=== PATIENT | female | born 1970 | race Caucasian/White ===

== ENCOUNTER → 2017-09-23 | Outpatient (CLI) | payer MEDICARE, OTHER ==
[~2017-09-23] MED LIST: ALPR.5 PO; ANAS1TAB PO; ATEN50TA PO; CITA40TA4 PO; HYDR25TA5 PO; LEVO50TA4 PO; LISI-515 PO; NORC5TAB PO; SOMA350T PO
[2017-09-23 12:21] LABS: HEMATOCRIT 34.4 % (35.0-46.0); MEAN CELL VOLUME 75.9 FL (80.0-100.0); MEAN CORPUSCULAR HEMOGLOBIN 24.2 PG (27.0-34.0); MEAN CORPUSCULAR HGB CONC 31.9 % (32.0-36.0); MEAN PLATELET VOLUME 7.7 FL (7.0-11.0); PLATELET COUNT 366 TH/MM3 (150-450); RED BLOOD COUNT 4.53 MIL/MM3 (4.00-5.30); RED CELL DISTRIBUTION WIDTH 19.9 % (11.6-17.2); WHITE BLOOD COUNT 6.7 TH/MM3 (4.0-11.0)
--- NOTE | 2017-09-23 14:09 | RADRPT ---
EXAM DATE/TIME: 09/23/2017 13:41 [place] COMPARISON: No previous studies available for comparison. INDICATIONS : Evaluate for pnemonia,pnuemothorax, or other communicable disease. Pre-op D&C. MEDICAL HISTORY : Carcinoma, breast. SURGICAL HISTORY : Lobectomy. [place] ENCOUNTER: Initial ACUITY: 1 day PAIN SCORE: 0/10 LOCATION: Bilateral chest FINDINGS: PA and lateral views of the chest demonstrate the lungs to be symmetrically aerated without evidence of mass, infiltrate or effusion. [id number] in good position. The cardiomediastinal contours are unremarkable. Osseous structures are intact. CONCLUSION: Negative for an acute process. Isaac Medley MD FACR on September 23, 2017 at 14:06 Board Certified Radiologist. This report was verified electronically.
--- NOTE | 2017-09-24 14:16 | EKG ---
Date Performed: 09/23/2017 Time Performed: 12:18:10 PTAGE: 46 years EKG: Sinus rhythm LOW QRS VOLTAGE IN PRECORDIAL LEADS BORDERLINE ECG NO PREVIOUS TRACING DOCTOR: Alexander Bueno Interpretating Date/Time 09/24/2017 14:14:23
== END ==
LOC: CPRE 11:54
PROVIDERS: ATTEND Obstetrics & Gynecology
DX: Z01.810 Encounter for preprocedural cardiovascular examination (principal); Z01.812 Encounter for preprocedural laboratory examination; Z01.818 Encounter for other preprocedural examination; N93.9 Abnormal uterine and vaginal bleeding, unspecified; R94.31 Abnormal electrocardiogram [ECG] [EKG]
CPT/HCPCS: 36415; 71046; 85027; 93005

== ENCOUNTER 2017-09-25 13:02 | Day surgery (SDC) | payer MEDICARE, OTHER ==
[2017-09-25] MEDS ORDERED: LIDOCAINE HCL 1% PF 5 ML SYRINGE OTHER (13:03)
[2017-09-25] MEDS ORDERED: ePHEDrine/NS 25 MG/5 ML SYRINGE IV (13:03)
[2017-09-25] MEDS ORDERED: PHENYLEPH/NS 1000 MCG/10 ML SYR IV (13:03)
[2017-09-25] MEDS ORDERED: ONDANSETRON HCL 4 MG/2 ML VIAL IV PUSH ×2 (13:03→19:15)
[2017-09-25] MEDS ORDERED: DEXAMETHASONE SOD PHOS 4 MG/ML VIAL IV (13:03)
[2017-09-25] MEDS ORDERED: ROCURONIUM INJ 50 MG/5 ML SYRINGE IV PUSH (13:03)
[2017-09-25] MEDS ORDERED: SUCCINYLCHOLINE CHLORIDE 100 MG/5 ML SYRINGE IV PUSH (13:03)
[2017-09-25] MEDS ORDERED: PROPOFOL 200 MG/20 ML AMP IV (13:03)
[2017-09-25] MEDS ORDERED: SODIUM CHLORID 0.9% 500 ML IV (14:00)
[2017-09-25] MEDS ORDERED: LACTATED RINGER'S 1000 ML IV (14:00)
[2017-09-25] MEDS ORDERED: METOPROLOL TARTRATE 25 MG TAB PO (14:00)
[2017-09-25] MEDS ORDERED: POVIDONE IODINE 5% (ANTISEPSIS KIT) 4 APPLICATIONS EACH NARE (14:00)
[2017-09-25] MEDS ORDERED: CHLORHEXIDINE GLUCONATE 2 % 1 PACK (2 CLOTHS) TOPICAL (14:00)
[2017-09-25] MEDS ORDERED: ACETAMINOPHEN 1000 MG/100 ML 100 ML IV (16:26)
[2017-09-25] MEDS ORDERED: DO NOT ADM ANY ANTICOAGULANT DRUGS (18:36)
[2017-09-25] MEDS ORDERED: MIDAZOLAM HCL 2 MG/2 ML VIAL (18:44)
[2017-09-25] MEDS ORDERED: KETOROLAC TROMETHAMINE 30 MG/ML (IVP) VIAL (18:51)
[2017-09-25] MEDS: KETOROLAC TROMETHAMINE 30 MG/ML (IVP) VIAL IV PUSH (19:15)
[2017-09-25] MEDS ORDERED: ACETAMINOPHEN/HYDROcodone 325 MG/5 MG TAB PO (19:15)
== END 2017-09-25 19:56 | disposition home or self-care (01) ==
LOC: HSDC 13:02
DX: N93.9 Abnormal uterine and vaginal bleeding, unspecified (principal); R93.8 Abnormal findings on diagnostic imaging of other specified body structures; N84.0 Polyp of corpus uteri; E66.01 Morbid (severe) obesity due to excess calories; I10 Essential (primary) hypertension; Z68.44 Body mass index [BMI] 60.0-69.9, adult; Z79.810 Long term (current) use of selective estrogen receptor modulators (SERMs)
CPT/HCPCS: 58120; 88305